=== PATIENT | female | born 2005 | race Caucasian/White ===

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

== ENCOUNTER 2024-05-08 22:45 | Inpatient (IN) ==
[2024-05-09] MEDS ORDERED: LIDOCAINE 1% LOCAL 20 ML VIAL INFIL PRN (01:55)
[2024-05-09] MEDS: PENICILLIN GK 6 MU in SODIUM CHLORIDE 0.9% 250 ML IV STA (02:26)
[2024-05-09] MEDS: LACTATED RINGER'S 1,000 ML IV PRN (02:29)
[2024-05-09 02:30] LABS: Mean Corpuscular Hemoglobin 25.7 pg (25.0-34.0); Mean Corpuscular Hgb Conc 32.4 g/dL (32.0-36.0); Mean Corpuscular Volume 79.4 fL (80.0-100.0); Platelet Count 190 K/uL (130-400); RDW Coefficient of Variation 13.8 % (11.5-14.5); RDW Standard Deviation 39.6 fL (36.4-46.3); Red Blood Count 4.28 M/uL (4.20-5.40); White Blood Count 11.84 K/ul (4.8-10.8)
[2024-05-09] MEDS ORDERED: diphenhydrAMINE 50 MG/ML VIAL IV PRN (02:53)
[2024-05-09] MEDS ORDERED: ROPIVACAINE 0.5% PF 5 MG/ML 20 ML VIAL EPI PRN (02:53)
[2024-05-09] MEDS ORDERED: ePHEDrine sulfate 50 MG/ML AMP IV PRN (02:53)
[2024-05-09] MEDS ORDERED: SODIUM CHLORIDE 0.9% PF INJ 10 ML VIAL EPI PRN (02:53)
[2024-05-09] MEDS ORDERED: LIDOCAINE 2% MPF LOCAL 5 ML VIAL EPI PRN (02:53)
[2024-05-09] MEDS ORDERED: BUPIVACAINE 0.25% PF 30 ML VIAL EPI PRN (02:53)
[2024-05-09] MEDS ORDERED: NALOXONE HCL 0.4 MG/1 ML VIAL/CARP IV PRN (02:53)
[2024-05-09] MEDS ORDERED: NALOXONE HCL 1 MG in SODIUM CHLORIDE 0.9% 1,000 ML IV PRN (02:53)
[2024-05-09] MEDS ORDERED: NALBUPHINE HCL INJ 10 MG/ML AMP IV PRN (02:53)
[2024-05-09] MEDS ORDERED: fentaNYL citrate PF 100 MCG/2 ML VIAL EPI PRN (02:53)
--- NOTE | 2024-05-09 02:53 | Anesthesiology Consultation ---
Date of Service May 09, 2024 Assessment & Plan Chart Review Chart Review: Acceptable Risk for Labor Epidural History Height/Weight Height: 5 ft 1 in Weight: 59.421 kg Allergies Allergy/AdvReac Type Severity Reaction Status Date / Time No Known Allergies Allergy Verified 05/06/24 14:09 Medications Home Medications Medication Instructions Recorded Confirmed Last Taken famotidine [Pepcid] PO 04/01/24 05/06/24 Unknown levothyroxine 125 mcg tablet 125 mcg PO DAILY #34 tabs 04/26/24 05/06/24 Unknown Active Medications Generic Name Dose Route Start Last Admin Trade Name Freq PRN Reason Stop Dose Admin Penicillin G Potassium 6 mu/ 262 mls @ 250 mls/hr 05/09/24 01:55 05/09/24 02:26 Sodium Chloride IV 05/09/24 02:57 250 mls/hr NOW STA Administration Lactated Ringer's 1,000 mls @ 125 mls/hr 05/09/24 01:55 05/09/24 02:29 Lr IV 05/10/24 01:54 999 mls/hr .Q8H PRN Administration L&D Protocol Protocol Past Medical History Medical History (Updated 04/18/24 @ 08:22 by Yulisa Mcnamara) Hypothyroidism Mood swings Depression with anxiety Family history of early CAD Injury of right little finger Past Family History Family History Father AVN (avascular necrosis of bone) states from drug use. Crohn's disease Hypertension Asthma Mother Asthma Grandmother (Maternal) Lung cancer Other Family history of diabetes mellitus Denies family history of Ovarian cancer Breast cancer Colorectal cancer Past Surgical History Surgical History History of tonsillectomy (~12/2019) Social History Smoking Status: Never smoker Do You Dip or Chew Tobacco: No Hx Alcohol Use: No Hx Substance Use: No substance use type: does not use Physical Exam Vital Signs Last Vital Signs Temp 36.8 C 05/08/24 23:05 Pulse 96 H 05/08/24 23:07 Resp 18 05/08/24 23:05 BP 128/91 05/08/24 23:07 Testing Laboratory Results 05/09/24 02:19
[2024-05-09] MEDS: LIDOCAINE 2%/EPINEPHRINE 1:200,000 20 ML PF EPI STA (03:05)
[2024-05-09] MEDS: fentANYL 2 MCG/ML BUPIVacaine 0.125%-NSS 100ML BAG EPI PRN (03:12)
[2024-05-09] MEDS: ePHEDrine sulfate 50 MG/ML AMP ONE (03:34)
[2024-05-09] MEDS: fentaNYL citrate PF 100 MCG/2 ML VIAL ONE (03:35)
[2024-05-09] MEDS: fentANYL 2 MCG/ML BUPIVacaine 0.125%-NSS 100ML BAG ONE (03:35)
[2024-05-09] MEDS: LIDOCAINE 2%/EPINEPHRINE 1:200,000 20 ML PF ONE (03:35)
[2024-05-09] MEDS: BUPIVACAINE 0.25% PF 30 ML VIAL ONE (03:35)
[2024-05-09] MEDS: SODIUM CHLORIDE 0.9% PF INJ 10 ML VIAL ONE (03:35)
[2024-05-09] MEDS: fentaNYL citrate PF 100 MCG/2 ML VIAL EPI STA (03:36)
[2024-05-09] MEDS: BUPIVACAINE 0.25% PF 30 ML VIAL EPI STA (03:36)
[2024-05-09] MEDS: SODIUM CHLORIDE 0.9% PF INJ 10 ML VIAL EPI STA (03:38)
--- NOTE | 2024-05-09 05:28 | History & Physical Report ---
Date of Service May 09, 2024 Assessment & Plan (1) Group B streptococcal infection during : (2) Gestational diabetes: (3) Normal labor: Plan admit for labor. has epidural and is comfortable. Just had arom. pitocin if indicated. fetus category one. anticipate . pcn for gbs + Admission and Anticipated Discharge Date Admission Date: May 09, 2024 History of Present Illness Chief Complaint: contractions Primary Care Provider: Tiny Urbina MD Patient is a 18yowf with iup at 39 3/7 weeks who presents to labor and delivery with contractions. no lof/vb. +fm. Made cervical change from 3.5 to5cm and admitted for labor. and Delivery Plans Hypothyroid *Check TFTs Q4wks * TSH on 09/11/23: [phone]- Seeing Endo on 09/16 * TSH on 02/29/24: 3.91 *TSH on 04/25: 4.5 Rubella Equivocal GDM-Declining 2hr GTT *Begin monthly Growth US's @24wks GBS Positive *Treat in Labor OB Labs: Blood Type B Positive 10/16/23 Antibody Screen NEGATIVE 10/16/23 Hgb 11.0 g/dl (12.0-16.0) L 12/09/23 Hct 31.9 % (37.0-47.0) L 12/09/23 MCV 84.4 fL (80.0-100.0) 12/09/23 Plt Count 151 K/uL (130-400) 12/09/23 Rubella IgG Antibody Equivocal (Immune) L 09/25/23 RPR Nonreactive (Nonreactive) 09/25/23 Hep Bs Antigen Negative (Negative) 10/16/23 Hepatitis C Antibody Negative (Negative) 10/16/23 HIV 1&2 Ab/P24 Ag 4thGn Negative (Negative) 09/25/23 Glucose 1 Hr 50 gm 139 mg/dl (70-130) H 11/26/23 OB Optional Labs: Chlamydia trachomatis RNA Not Detected (NotDetected) 09/25/23 Neisseria gonorrhoeae RNA Not Detected (NotDetected) 09/25/23 Thyroid Stimulating Hormone (TSH) 4.530 uIu/ml (0.300-4.500) H 04/25/24 Labs Reviewed: gbs positive. declined 2 hr gtt, treating presumptively. Allergies Allergy/AdvReac Type Severity Reaction Status Date / Time No Known Allergies Allergy Verified 05/06/24 14:09 Home Medications Medication Instructions Recorded Confirmed Type levothyroxine 125 mcg tablet 125 mcg PO DAILY #34 tabs 04/26/24 05/09/24 Rx Patient History Medical History Hypothyroidism Mood swings Depression with anxiety Family history of early CAD Injury of right little finger Surgical History History of tonsillectomy (~12/2019) Family History Father AVN (avascular necrosis of bone) states from drug use. Crohn's disease Hypertension Asthma Mother Asthma Grandmother (Maternal) Lung cancer Other Family history of diabetes mellitus Denies family history of Ovarian cancer Breast cancer Colorectal cancer Social History Smoking Status: Never smoker Tobacco Type: E-cigarettes / Vaping Do You Dip or Chew Tobacco: No; Hx Alcohol Use: No Hx Substance Use: No Preferred Language: Albanian Communication Ability: Effective Information Operator Required: No Beliefs That Will Affect Care: None marital status: Single marital status details: Abisai Card (27) [phone] Current Living Situation: Significant Other Current Living Situation Comment: abiasi card, son 5 year old current occupational status: employed current occupation: [employer] Other Information That Helps Us Care for You: No Feels Safe at Home: Yes Safety Concerns: Feels Safe At This Time Childhood Exposure to Second-Hand Smoke: Yes Dental Care, Regularly: Yes Assistive Devices: None OB History g1--present COMPUTER GRAPHICS ILLUSTRATOR History noncontributory Physical Exam Constitutional: WD/WN, vitals as above Gastrointestinal (Abdomen): soft, gravid, nt Psychiatric: A+Ox3, euthymic affect Genitourinary: cx--5/100/-2 arom--clear toco--q2-5min efm--130s with mod variability, accels to 150s, no decels Results & Data Vital Signs (Past 12 Hours) Vital Signs Temp Pulse Resp BP Pulse Ox 05/09/24 05:25 68 104/54 L 96 05/09/24 05:21 113 H 89 L 05/09/24 05:20 100 H 91 05/09/24 05:15 88 92 05/09/24 05:10 92 05/09/24 05:10 92 H 05/09/24 05:10 88 119/66 05/09/24 05:05 83 92 05/09/24 05:00 86 92 05/09/24 04:59 18 05/09/24 04:59 18 05/09/24 04:56 83 121/68 05/09/24 04:55 85 92 05/09/24 04:50 89 93 05/09/24 04:45 83 92 05/09/24 04:40 79 120/68 92 05/09/24 04:35 76 92 05/09/24 04:30 85 92 05/09/24 04:29 18 05/09/24 04:29 18 05/09/24 04:26 73 122/72 05/09/24 04:25 73 93 05/09/24 04:20 85 92 05/09/24 04:15 84 92 05/09/24 04:14 18 05/09/24 04:14 18 05/09/24 04:12 83 129/73 05/09/24 04:10 81 93 05/09/24 04:05 80 92 05/09/24 04:00 89 92 05/09/24 03:59 18 05/09/24 03:59 18 05/09/24 03:55 93 05/09/24 03:55 84 05/09/24 03:55 83 127/72 05/09/24 03:50 83 93 05/09/24 03:45 82 94 05/09/24 03:44 18 05/09/24 03:44 18 05/09/24 03:40 82 125/74 94 05/09/24 03:39 18 05/09/24 03:39 18 05/09/24 03:35 72 96 05/09/24 03:34 18 05/09/24 03:34 18 05/09/24 03:32 87 89 L 05/09/24 03:30 80 95 05/09/24 03:29 18 05/09/24 03:29 18 05/09/24 03:27 81 91 05/09/24 03:25 96 05/09/24 03:25 72 05/09/24 03:25 83 114/73 05/09/24 03:23 93 H 116/84 05/09/24 03:20 88 139/87 97 05/09/24 03:18 87 133/84 05/09/24 03:16 90 136/87 05/09/24 03:15 90 97 05/09/24 03:14 94 H 136/87 05/09/24 03:12 88 137/86 05/09/24 03:10 96 05/09/24 03:10 92 H 05/09/24 03:10 95 H 137/81 05/09/24 03:05 104 H 97 05/09/24 03:02 36.9 C 18 05/09/24 03:00 99 H 99 05/08/24 23:07 96 H 128/91 05/08/24 23:05 36.8 C 18 Coding Level of Care Code None Diagnoses Group B streptococcal infection during O98.819; B95.1 Gestational diabetes O24.419 Normal labor O80; Z37.9
[2024-05-09] MEDS: PENICILLIN GK 3 MU in DEXTROSE 5% 100 ML IV PRN (06:09)
--- NOTE | 2024-05-09 07:13 | Labor Progress Brief Note ---
Date of Service May 09, 2024 Subjective comfortable Assessment & Plan (1) Normal labor: (2) Group B streptococcal infection during : (3) Gestational diabetes: Plan sugars good, start pitocin. anticipate . Admission and Anticipated Discharge Date Admission Date: May 09, 2024 Physical Exam Physical Exam: cx--unchanged toco--irregularq2-5 efm--115 with mod variability, accels to 140s , no decels Results & Data Vital Signs (Past 12 Hours) Vital Signs Temp Pulse Resp BP Pulse Ox 05/09/24 07:05 73 96 05/09/24 07:00 66 97 05/09/24 06:55 65 112/69 97 05/09/24 06:50 64 97 05/09/24 06:45 65 96 05/09/24 06:41 69 115/68 05/09/24 06:40 71 97 05/09/24 06:35 73 96 05/09/24 06:30 78 95 05/09/24 06:25 73 117/72 98 05/09/24 06:20 74 95 05/09/24 06:15 89 96 05/09/24 06:10 105 H 112/77 96 05/09/24 06:05 63 96 05/09/24 06:00 81 96 05/09/24 05:56 74 115/70 05/09/24 05:55 83 96 05/09/24 05:50 68 95 05/09/24 05:45 69 97 05/09/24 05:42 77 108/61 05/09/24 05:40 87 96 05/09/24 05:35 76 97 05/09/24 05:30 78 97 05/09/24 05:25 36.9 C 68 18 104/54 L 96 05/09/24 05:21 113 H 89 L 05/09/24 05:20 100 H 91 05/09/24 05:15 88 92 05/09/24 05:10 92 05/09/24 05:10 92 H 05/09/24 05:10 88 119/66 05/09/24 05:05 83 92 05/09/24 05:00 86 92 05/09/24 04:59 18 05/09/24 04:59 18 05/09/24 04:56 83 121/68 05/09/24 04:55 85 92 05/09/24 04:50 89 93 05/09/24 04:45 83 92 05/09/24 04:40 79 120/68 92 05/09/24 04:35 76 92 05/09/24 04:30 85 92 05/09/24 04:29 18 05/09/24 04:29 18 05/09/24 04:26 73 122/72 05/09/24 04:25 73 93 05/09/24 04:20 85 92 05/09/24 04:15 84 92 05/09/24 04:14 18 05/09/24 04:14 18 05/09/24 04:12 83 129/73 05/09/24 04:10 81 93 05/09/24 04:05 80 92 05/09/24 04:00 89 92 05/09/24 03:59 18 05/09/24 03:59 18 05/09/24 03:55 93 05/09/24 03:55 84 05/09/24 03:55 83 127/72 05/09/24 03:50 83 93 05/09/24 03:45 82 94 05/09/24 03:44 18 05/09/24 03:44 18 05/09/24 03:40 82 125/74 94 05/09/24 03:39 18 05/09/24 03:39 18 05/09/24 03:35 72 96 05/09/24 03:34 18 05/09/24 03:34 18 05/09/24 03:32 87 89 L 05/09/24 03:30 80 95 05/09/24 03:29 18 05/09/24 03:29 18 05/09/24 03:27 81 91 05/09/24 03:25 96 05/09/24 03:25 72 05/09/24 03:25 83 114/73 05/09/24 03:23 93 H 116/84 05/09/24 03:20 88 139/87 97 05/09/24 03:18 87 133/84 05/09/24 03:16 90 136/87 05/09/24 03:15 90 97 05/09/24 03:14 94 H 136/87 05/09/24 03:12 88 137/86 05/09/24 03:10 96 05/09/24 03:10 92 H 05/09/24 03:10 95 H 137/81 05/09/24 03:05 104 H 97 05/09/24 03:02 36.9 C 18 05/09/24 03:00 99 H 99 05/08/24 23:07 96 H 128/91 05/08/24 23:05 36.8 C 18 Coding Level of Care Code None Diagnoses Normal labor O80; Z37.9 Group B streptococcal infection during O98.819; B95.1 Gestational diabetes O24.419
[2024-05-09] MEDS: OXYTOCIN 30 UNITS/NSS 30 UNITS/500 ML BAG IV PRN ×2 (07:29→18:13)
--- NOTE | 2024-05-09 09:38 | Labor Progress Brief Note ---
Date of Service May 09, 2024 Subjective Comfortable with epidural. On Pitocin. Assessment & Plan (1) Normal labor: Plan: Low baseline noted. When questioned, pt and her mom note that she does use nicotine every day, vaping 5x per average day, and has not had any nicotine since yesterday due to her admission. I am unsure if this is the reason for her baseline but have not found any other probable causes. No cravings right now per pt; could consider low dose nicotine patch regardless. She is not overdue for a dose of synthroid, which is ordered for her usual time of 3pm, and took last dose yesterday at the usual time. Since heart rate pattern is reassuring except for baseline, will observe closely and continue IOL. IUPC showing low MVU will allow increase of pit to hopefully achieve delivery. BG has been normal, will stop checking as pt was diet controlled and not on insulin. Admission and Anticipated Discharge Date Admission Date: May 09, 2024 Physical Exam Genitourinary: FHT with normal variability, + accels no decels, but baseline low at times 90- 95, and mostly around 100. [place] poorly traced, and IUPC requested by RN / placed by . [place] appears Q2 but not likely adequate MVU, goal being 200-250. Cervix 5/90/-1 Vertex palpable. Results & Data Vital Signs (Past 12 Hours) Vital Signs Temp Pulse Resp BP Pulse Ox O2 Del Method 05/09/24 09:30 56 L 99 05/09/24 09:26 85 L 05/09/24 09:26 55 L 05/09/24 09:26 58 L 123/81 05/09/24 09:25 58 L 86 L 05/09/24 09:20 52 L 96 05/09/24 09:15 54 L 95 05/09/24 09:10 61 116/68 94 05/09/24 09:08 79 85 L 05/09/24 09:05 78 96 05/09/24 09:00 68 89 L 05/09/24 08:56 68 120/67 05/09/24 08:55 68 88 L 05/09/24 08:50 63 88 L 05/09/24 08:45 71 88 L 05/09/24 08:42 69 89 L 05/09/24 08:41 76 115/65 05/09/24 08:40 69 91 05/09/24 08:35 68 91 05/09/24 08:30 64 95 05/09/24 08:29 60 89 L 05/09/24 08:26 64 116/67 05/09/24 08:25 68 89 L 05/09/24 08:23 64 89 L 05/09/24 08:20 69 95 05/09/24 08:15 76 98 05/09/24 08:12 69 86 L 05/09/24 08:10 64 117/68 96 05/09/24 08:05 93 H 92 05/09/24 08:00 66 97 05/09/24 07:55 96 05/09/24 07:55 62 05/09/24 07:55 58 L 110/58 L 05/09/24 07:50 64 96 05/09/24 07:45 71 98 05/09/24 07:41 60 110/58 L 05/09/24 07:40 77 99 05/09/24 07:35 67 98 05/09/24 07:30 67 98 05/09/24 07:25 98 05/09/24 07:25 69 05/09/24 07:25 76 112/67 05/09/24 07:20 80 96 05/09/24 07:18 98.8 F 15 Room Air 05/09/24 07:15 70 96 05/09/24 07:10 69 111/68 95 05/09/24 07:05 73 96 05/09/24 07:00 66 97 05/09/24 06:55 65 112/69 97 05/09/24 06:50 64 97 05/09/24 06:45 65 96 05/09/24 06:41 69 115/68 05/09/24 06:40 71 97 05/09/24 06:35 73 96 05/09/24 06:30 78 95 05/09/24 06:25 73 117/72 98 05/09/24 06:20 74 95 05/09/24 06:15 89 96 05/09/24 06:10 105 H 112/77 96 05/09/24 06:05 63 96 05/09/24 06:00 81 96 05/09/24 05:56 74 115/70 05/09/24 05:55 83 96 05/09/24 05:50 68 95 05/09/24 05:45 69 97 05/09/24 05:42 77 108/61 05/09/24 05:40 87 96 05/09/24 05:35 76 97 05/09/24 05:30 78 97 05/09/24 05:25 98.4 F 68 18 104/54 L 96 05/09/24 05:21 113 H 89 L 05/09/24 05:20 100 H 91 05/09/24 05:15 88 92 05/09/24 05:10 92 05/09/24 05:10 92 H 05/09/24 05:10 88 119/66 05/09/24 05:05 83 92 05/09/24 05:00 86 92 05/09/24 04:59 18 05/09/24 04:59 18 05/09/24 04:56 83 121/68 05/09/24 04:55 85 92 05/09/24 04:50 89 93 05/09/24 04:45 83 92 05/09/24 04:40 79 120/68 92 05/09/24 04:35 76 92 05/09/24 04:30 85 92 05/09/24 04:29 18 05/09/24 04:29 18 05/09/24 04:26 73 122/72 05/09/24 04:25 73 93 05/09/24 04:20 85 92 05/09/24 04:15 84 92 05/09/24 04:14 18 05/09/24 04:14 18 05/09/24 04:12 83 129/73 05/09/24 04:10 81 93 05/09/24 04:05 80 92 05/09/24 04:00 89 92 05/09/24 03:59 18 05/09/24 03:59 18 05/09/24 03:55 93 05/09/24 03:55 84 05/09/24 03:55 83 127/72 05/09/24 03:50 83 93 05/09/24 03:45 82 94 05/09/24 03:44 18 05/09/24 03:44 18 05/09/24 03:40 82 125/74 94 05/09/24 03:39 18 05/09/24 03:39 18 05/09/24 03:35 72 96 05/09/24 03:34 18 05/09/24 03:34 18 05/09/24 03:32 87 89 L 05/09/24 03:30 80 95 05/09/24 03:29 18 05/09/24 03:29 18 05/09/24 03:27 81 91 05/09/24 03:25 96 05/09/24 03:25 72 05/09/24 03:25 83 114/73 05/09/24 03:23 93 H 116/84 05/09/24 03:20 88 139/87 97 05/09/24 03:18 87 133/84 05/09/24 03:16 90 136/87 05/09/24 03:15 90 97 05/09/24 03:14 94 H 136/87 05/09/24 03:12 88 137/86 05/09/24 03:10 96 05/09/24 03:10 92 H 05/09/24 03:10 95 H 137/81 05/09/24 03:05 104 H 97 05/09/24 03:02 98.4 F 18 05/09/24 03:00 99 H 99 05/08/24 23:07 96 H 128/91 05/08/24 23:05 98.2 F 18 Coding Level of Care Code None Diagnoses Normal labor O80; Z37.9
[2024-05-09] MEDS: NICOTINE 7 MG/24 HR TDSY TD SCH (10:31)
[2024-05-09] MEDS: LEVOTHYROXINE SODIUM 125 MCG TABLET PO SCH (10:35)
[2024-05-09] MEDS ORDERED: Nursing to Pharmacy Communication SCH (14:00)
--- NOTE | 2024-05-09 16:37 | Delivery Summary ---
Vaginal Delivery Summary Date of Service May 09, 2024 Vaginal Delivery Summary DIAGNOSES: 1. Wright intrauterine at 39w3d gestation. 2. Spontaneous onset of labor. 3. Group B Streptococcus Positive, treated. PROCEDURE: Vacuum-assisted vaginal delivery and repair of second degree laceration. SURGEON: Hillary Monson MD. VISUAL AND STOCK ASSOCIATE: None. ESTIMATED BLOOD LOSS: 250 mL. COMPLICATIONS: None. PLACENTA: Spontaneous and intact with a 3-vessel cord. DISPOSITION: Stable to labor and delivery. DESCRIPTION: The patient pushed well but after nearly 2 hours was exhausted. She was counseled on operative vaginal delivery and accepted use of the vacuum. The vacuum was placed at the occiput and gentle traction was applied through the next two contractions, with zero pop-offs. The infant's head delivered and the vacuum was removed. There was no nuchal cord. The left shoulder was anterior. A dystocia was evident and assistance was requested. Breonna and Suprapubic pressure were applied, and the anterior shoulder was delivered with traction under the axilla in combination with the above maneuvers. The posterior shoulder was similarly delivered with axillary traction plus a maternal pushing effort. Even after both shoulders delivered, soft tissue dystocia persisted and gentle traction on the was required in combination with maternal pushing efforts until the infant's entire torso was delivered. The hips through feet delivered without any difficulty, and the infant was placed on the maternal abdomen. It was vigorous and moving all extremities, and making respiratory efforts. The cord was doubly clamped by the MD and then cut promptly so the infant could be brought directly to the warmer. The placenta delivered spontaneously, though the cord detached during delivery, and was noted to be intact and with a 3VC. The cervix, vagina and perineum were examined and were found to have a second degree laceration which was repaired in the usual manner with vicryl suture. The fundus was firm and lochia minimal immediately after delivery. [facility] Vaginal Delivery Charge Vaginal Delivery Codes: 89937 global code for the antepartum, delivery, and post-
[2024-05-09] MEDS ORDERED: bisacodyL 10 MG SUPP PR PRN (17:02)
[2024-05-09] MEDS ORDERED: DIPHTHER/TETAN/PERTUS Vaccine (Tdap, Adol/Adult) 0.5mL IM ONE (17:02)
[2024-05-09] MEDS ORDERED: HYDROCORTISONE ACETATE 25 MG SUPP PR PRN (17:02)
--- NOTE | 2024-05-09 17:33 | Anesthesia Procedure Note ---
Date of Service May 09, 2024 Anesthesia Post Epidural Note Vital Signs Vital Signs: Temp Pulse Resp BP Pulse Ox O2 Del Method 36.9 C 86 14 134/82 89 L Room Air 05/09/24 16:30 05/09/24 17:25 05/09/24 17:15 05/09/24 17:25 05/09/24 16:05/09/24 07:18 Pain Intensity Bilateral Abdomen: Pain Intensity: 3 Notes Mental Status: alert / awake / arousable and participated in evaluation Patient Amnestic to Procedure: No Nausea / Vomiting: adequately controlled Pain: adequately controlled Airway Patency, RR, SpO2: stable & adequate BP & HR: stable & adequate Hydration State: stable & adequate Neuraxial Anesthesia: was administered and sensory block is resolving Anesthetic Complications: no major complications apparent and Pt Satisfied with anesthetic care Epidural: Removed without complications and With tip intact
[2024-05-09] MEDS: IBUPROFEN 600 MG TAB PO PRN (18:16)
[2024-05-09] MEDS: BENZOCAINE 20% SPRY 85 APPLN/85 GM CAN EXT PRN (18:26)
[2024-05-09] MEDS: OXYTOCIN 20 UNITS/LR 1,002 ML IV SCH (19:00)
[2024-05-09] MEDS: ACETAMINOPHEN 325 MG TAB PO PRN (21:47)
[2024-05-09] MEDS: DOCUSATE SODIUM 100 MG CAP PO SCH (21:47)
[2024-05-10 06:35] LABS: Hematocrit (blood only) 24.4 % (37.0-47.0); Hemoglobin 8.1 g/dl (12.0-16.0); Mean Corpuscular Hemoglobin 26.1 pg (25.0-34.0); Mean Corpuscular Hgb Conc 33.2 g/dL (32.0-36.0); Mean Corpuscular Volume 78.7 fL (80.0-100.0); Mean Platelet Volume 12.7 fL (9.4-12.4); Platelet Count 164 K/uL (130-400); RDW Standard Deviation 40.1 fL (36.4-46.3); White Blood Count 12.16 K/ul (4.8-10.8)
--- NOTE | 2024-05-10 07:03 | Obstetrical Progress Note ---
Date of Service <Nicky Solis MD - Last Filed: 05/10/24 07:13> May 10, 2024 Assessment & Plan <Nicky Solis MD - Last Filed: 05/10/24 07:13> (1) care and examination: Plan PPD#1 after vacuum-assisted vaginal delivery at 39 weeks Stable. H/H noted. Rh+, GBS+ s/p PCN, rubella immunity equivocal Work on OOB and ambulation Diet as tolerated Sitz bath & continue analgesia for stitch pain Tentative d/c tomorrow <Kelley Chowdhury MD, FACOG - Last Filed: 05/10/24 07:51> (1) care and examination: Subjective <Nicky Solis MD - Last Filed: 05/10/24 07:13> who is PPD#1 after vacuum-assisted vaginal delivery at 39 weeks, c/b shoulder dystocia 5~7/10 pain/cramping, near stitches, well managed on analgesics No issues voiding, eating, drinking Feels lightheaded & needs assistance ambulating Having appropriate lochia Planning for bottle feeding Constitutional: no fever, no chills or no sweats Respiratory: no dyspnea Cardiovascular: no chest pain, no palpitations or no calf pain Breast: no breast pain Gastrointestinal: no nausea or no vomiting Genitourinary (female): no dysuria Neurologic: no headache(s) no changes in vision, no headaches Physical Exam <Nicky Solis MD - Last Filed: 05/10/24 07:13> General: Alert, oriented. No acute distress. Cardiac: Regular rate and rhythm, no murmurs, rubs, or gallops. Respiratory: Clear to auscultation bilaterally. No increased work of breathing. Symmetrical chest rise. No respiratory distress. Abdomen: Soft, nontender, nondistended. Bowel sounds present. Uterus: Uterine fundus firm, mild appropriate tenderness, palpable near the umbilicus Lower extremities: No lower extremity edema or swelling. No deep calf pain. Results & Data <Nicky Solis MD - Last Filed: 05/10/24 07:13> Vital Signs (Past 12 Hours) Vital Signs Temp Pulse Pulse Resp BP BP Pulse Ox 05/10/24 02:05 36.7 C 87 18 112/68 97 05/09/24 23:10 36.9 C 77 18 118/73 98 05/09/24 20:08 36.9 C 78 20 129/78 100 05/09/24 19:25 18 05/09/24 19:25 101 H 122/76 05/09/24 19:10 91 H 130/84 O2 Del Method 05/10/24 02:05 Room Air 05/09/24 23:10 Room Air 05/09/24 20:08 Room Air 05/09/24 19:25 05/09/24 19:25 05/09/24 19:10 Laboratory Results 05/10/24 06:00 Supervising Physician <Kelley Chowdhury MD, FACOG - Last Filed: 05/10/24 07:51> Co-Signing Physician Notes Resident Physician Supervision Note: I was present with Dr. Solis during the history and exam. I discussed the case with the resident and agree with the findings and plan as documented in the note. Any exceptions or clarifications are listed here: eating, voiding, burning to be expected with laceration. laceration sore. felt lightheaded earlier, not ambul to BR independently. vss. abd soft ff at u, needs to void. ext nt calves. ppd#1 s/p vavd, will need to move more today. discussed sitz baths later today. bottle feeding, mmr ordered. Documented By: Kelley Chowdhury MD, FACOG Resident Activity Tracking <Nicky Solis MD - Last Filed: 05/10/24 07:13> Resident Involvement: Resident Care Provided Care Provided: Adult Hospital Medicine
[2024-05-10] MEDS: PRENATAL VITAMIN 1 TAB PO SCH (08:17)
[2024-05-10] MEDS: FAMOTIDINE 10 MG TABLET PO SCH (08:23)
[2024-05-10] MEDS: bisacodyL 5 MG TABEC PO SCH (21:47)
[2024-05-11 00:33] VITALS: O2SAT 98
--- NOTE | 2024-05-11 06:45 | Obstetrical Progress Note ---
Date of Service <Nicky Solis MD - Last Filed: 05/11/24 08:02> May 11, 2024 Assessment & Plan <Nicky Solis MD - Last Filed: 05/11/24 08:02> (1) care and examination: Plan PPD#2 after vacuum-assisted vaginal delivery at 39 weeks Stable. AM hgb pending, pt w/o sx Rh+, GBS+ s/p PCN, rubella immunity equivocal Continue ambulation, EDIE Continue Sitz bath & motrin for stitch pain Plan for DC later today <Kristina King MD, FACOG - Last Filed: 05/11/24 08:03> (1) care and examination: Subjective <Nicky Solis MD - Last Filed: 05/11/24 08:02> Patient is a who is PPD#2 after vacuum-assisted vaginal delivery at 39 weeks, c/b shoulder dystocia Reports pain is substaintially improved Has been able to ambulate independently Is eating, drinking, voiding normally Planning for both breast & bottle feeding Would like son circumcised, otherwise feels ready for home Constitutional: no fever, no chills or no sweats Respiratory: no dyspnea Cardiovascular: no chest pain, no palpitations or no calf pain Breast: no breast pain Gastrointestinal: no nausea or no vomiting Genitourinary (female): no dysuria Neurologic: no headache(s) Physical Exam <Nicky Solis MD - Last Filed: 05/11/24 08:02> General: Alert, oriented. No acute distress. Cardiac: Regular rate and rhythm, no murmurs, rubs, or gallops. Respiratory: Clear to auscultation bilaterally. No increased work of breathing. Symmetrical chest rise. No respiratory distress. Abdomen: Soft, nontender, nondistended. Bowel sounds present. Uterus: Uterine fundus firm, mild appropriate tenderness, palpable near the umbilicus Lower extremities: No lower extremity edema or swelling. No deep calf pain. Results & Data <Nicky Solis MD - Last Filed: 05/11/24 08:02> Vital Signs (Past 12 Hours) Vital Signs Temp Pulse Resp BP Pulse Ox O2 Del Method 05/10/24 23:00 36.8 C 83 18 129/84 98 Room Air 05/10/24 19:37 37 C 89 18 144/93 H 99 Room Air Laboratory Results 05/10/24 06:00 Supervising Physician <Kristina King MD, FACOG - Last Filed: 05/11/24 08:03> Co-Signing Physician Notes Resident Physician Supervision Note: I was present with Dr. Solis during the history and exam. I discussed the case with the resident and agree with the findings and plan as documented in the note. Any exceptions or clarifications are listed here: [None] Documented By: Kristina King MD, FACOG Resident Activity Tracking <Nicky Solis MD - Last Filed: 05/11/24 08:02> Resident Involvement: Resident Care Provided Care Provided: Adult Hospital Medicine
[2024-05-11 08:18] LABS: Hematocrit (blood only) 28.7 % (37.0-47.0); Hemoglobin 9.3 g/dl (12.0-16.0)
[2024-05-11 09:10] VITALS: BP 124/91; PULSE 77; RESP 16; TEMP 97.7
== END 2024-05-11 12:00 | disposition home or self-care (01) | DRG 807 ==
LOC: OPB 22:45 → 4S1 22:47 → 4E2 05-09 20:45